=== PATIENT | male | born 1950 | race Caucasian/White ===

== ENCOUNTER 2016-07-13 06:52 | Day surgery (SDC) | payer BC ==
[~2016-07-13] VITALS: Ht 162.6 cm; Wt 70.0 kg
[2016-07-13] VITALS (11 sets, daily range): BP systolic 120–142; BP diastolic 61–94
[~2016-07-13 06:52] MED LIST: ASPI-586 PO; ATOR80TA PO; LACTATED RINGERS 1,000 ML IV SCH; LOVA10TA; NITR0.4T7 SL; SODIUM CHLORIDE FLUSH 3 ML SYR IV PRN; TAMS-8; [UNRECOGNIZED DRUG - OTHER]
--- OUTSIDE RECORDS SUMMARY | 2016-07-13 06:57 | XMS REPORT | Summary of Care ---
Author Author Abigail Crook Organization Unknown Address [address], [place] [id number] Phone Unavailable Care Team Providers Care Warp Picker Name Role Phone Alex Salas, Jeaneth Unavailable Unavailable Abigail Crook Unavailable Unavailable Nba Salas, T. KBeto Unavailable Unavailable Minal Pal Unavailable Unavailable Tram Salas, Mitzi Unavailable Unavailable Nohemi Salas, Shania Unavailable Unavailable Blanche Shah Unavailable Unavailable Unavailable Unavailable Functional Status Name Dates Details Functional status health issues are not documented Status: Name Dates Details Cognitive status health issues are not documented Status: Problems Name Dates Details Depression (311, F32.9) Status: Active Pulsatile abdominal mass (789.30, R19.00) Status: Active CAD (coronary atherosclerotic disease) (414.00, I25.10) Status: Active History of coronary artery stent placement (V45.82, Z95.5) Status: Active Hyperlipidemia (272.4, E78.5) Status: Active Obstructive sleep apnea (327.23, G47.33) Status: Active Medications Name Dates Details Sertraline HCl - 100 MG Oral Tablet TAKE 1 TABLET ONCE DAILY. Refills: 0 Diana Arango M.D. Start 29-Jun-2010 Active Tamsulosin HCl - 0.4 MG Oral Capsule Take 1 capsule twice daily Refills: 0 Abigail Crook Start 29-Jun-2010 Active Nitrostat 0.4 MG Sublingual Tablet Sublingual Take as directed Quantity: 25 Refills: 0 Edenilson Johnson M.D. Start Active Multivitamins TABS TAKE 1 TABLET DAILY. Refills: 0 Edenilson Johnson M.D. Start Active Iron 325 (65 Fe) MG Oral Tablet TAKE 1 TABLET DAILY DIRECTED. Quantity: 30 Refills: 0 Edenilson Johnson M.D. Start Active Aspirin 81 MG TABS TAKE 1 TABLET DAILY. Refills: 0 Diana Arango M.D. Start Active Atorvastatin Calcium 80 MG Oral Tablet TAKE 1 TABLET EVERY NIGHT AT BEDTIME Quantity: 90 Refills: 2 Mitchell Ugalde M.D. Start Active Supplies Auto CPAP 8-12 cm H2O pressure Refills: 0 La P.A., Abigail Start 16-May-2012 Active Supplies CPAP repair, services and supplies, G47.33 Mask, headgear, filters, heated tubing, chinstrap Quantity: 1 Refills: 0 La P[facility]., Abigail Start 28-May-2013 Active Supplies CPAP repair, services and supplies, 327.23 Mask, headgear, filters, heated tubing, chinstrap Quantity: 1 Refills: 0 Bharat P.A., Minal Start 27-May-2014 Active Nasacort Allergy 24HR 55 MCG/ACT Nasal Aerosol Refills: 0 Nohemi Salas, Davis Jauregui Start 27-May-2015 Active Benadryl Allergy 25 MG Oral Tablet Refills: 0 Nohemi Salas, Davis Jauregui Start 27-May-2015 Active Allergies and Adverse Reactions Name Dates Details Influenza Virus Vaccine Whole (Allergy) Status: Denied No Known Drug Allergies (Allergy) Status: Active Past Medical History Name Dates Details History of angina pectoris (V12.59, Z86.79) Status: Resolved History of Asthma (493.90, J45.909) Status: Resolved History of chest pain (V13.89, Z87.898) Status: Resolved History of Pneumonia (V12.61) Status: Resolved History of Pre-operative cardiovascular examination (V72.81, Z01.810) Status: Resolved Personal history of asthma (V12.69, Z87.09) Status: Resolved Procedures Procedure Dates Details History of Cath Stent Placement Completed: Procedures not documented Immunization Name Dates Details Immunizations not documented Family History Name Dates Details Family history of Acute Myocardial Infarction (V17.3) Status: Active Family history of Father At Age ____ Status: Active Social History Name Dates Details - Status: Name Dates Details Former smoker Vital Signs Date Test Result Details 08-Jun-2016 08:06 BP Systolic 108 mm[Hg] Status: Comments: Location: ; Position: BP Diastolic 62 mm[Hg] Status: Comments: Location: ; Position: Heart Rate 69 /min Status: Comments: Location: ; Height 64 in Status: Weight 164 lb Status: Physical Findings 98 Status: Comments: O2 Saturation Body Mass Index Calculated 28.15 kg/m2 Status: Body Surface Area Calculated 1.8 m2 Status: Results Date Description Value Details Results not documented Plan of Care Name Dates Details Planned Observations Planned Goals not documented Planned Encounters Appointment; Provider: Asiya Reyes A.P.R.N. On 11-Jun-2017 09:30 Appointment; Provider: Mitchell Ugalde M.D. On 19-Jul-2016 13:30 Interventions Provided Medication ChangesSupplies - Renew Instructions Name Dates Details Instructions not documented Encounters Appointment; Mitchell Ugalde M.D. Encounter Diagnosis: Problem not documented On 20-Jul-2015 15:15 Appointment; Davis Song M.D. Encounter Diagnosis: Problem not documented On 27-May-2015 15:15 Appointment; Mitchell Ugalde M.D. Encounter Diagnosis: Problem not documented On 15-Jul-2014 15:45
[2016-07-13] MEDS ORDERED: PROPOFOL 20 ML IV ONE ×2 (07:40)
[2016-07-13] MEDS ORDERED: MIDAZOLAM 2 MG/2 ML (VERSED) VIAL ONE (07:40)
[2016-07-13] MEDS ORDERED: ALFENTANIL 500 MCG/ML (ALFENTA) 5 ML AMP IV ONE (07:40)
--- NOTE | 2016-07-13 07:52 | NUR ---
0752 attempt to put in iv . pt has possible vagal episode. b/p 80/45 p 38 02 on and cool clothe to forehead. 0800 b/p 93/57 p49 sat [address] Arredondo in to see pt. 0805 b/p 112/69 p 52 sats 100.
--- NOTE | 2016-07-13 09:20 | NUR ---
[facility]OW[facility] CALLED PER PATIENT REQUEST. WILL BE HERE TO PICK PATIENT UP AROUND 1200 REQUESTED.
--- NOTE | 2016-07-13 10:57 | OPERATIVE REPORT ---
DATE OF OPERATION: 07/13/2016 PRE-OPERATIVE DIAGNOSIS: Colon screening POST-OPERATIVE DIAGNOSIS: Rectosigmoid polyp OPERATIVE PROCEDURE: Total colonoscopy with snare polypectomy SURGEON: Cory Arredondo MD ANESTHESIA: IV conscious sedation, Monitored Anesthesia Services POSITION: Left lateral decubitus ESTIMATED BLOOD LOSS: Minimal FINDINGS: 1. A 3 to 4 mm pedunculated polyp at the rectosigmoid junction. 2. The remainder of the colon mucosa appeared normal. 3. Good prep. DESCRIPTION OF PROCEDURE: Following satisfactory induction of analgesia a digital rectal exam was performed. This revealed no mass. The prostate was smooth and slightly enlarged. Sphincter tone was normal. The colonoscope was introduced per rectum and advanced under CO2 insufflation and direct vision to the cecum. The cecum was identified by the appendiceal orifice, convergence of teniae, ileocecal valve and palpation of the right lower quadrant. Health Facilities Surveyor photographs were obtained. The above areas were again carefully inspected again as the scope was slowly withdrawn. The polyp at the rectosigmoid junction was removed using snare cautery and submitted to pathology. Good hemostasis was noted at the polypectomy site. Retroflexed view of the rectum was normal. Excess insufflated CO2 was evacuated and the scope removed. The patient tolerated the procedure well and transferred to recovery in stable condition. Recommendations: Pending pathology results, if this is an adenomatous polyp the patient will require repeat colonoscopy in 5 years.
== END 2016-07-13 11:57 | disposition home or self-care (01) ==
LOC: ASC 06:52
PROVIDERS: ATTEND Surgery
DX: Z12.11 Encounter for screening for malignant neoplasm of colon (principal); D12.7 Benign neoplasm of rectosigmoid junction; I25.10 Atherosclerotic heart disease of native coronary artery without angina pectoris; Z95.5 Presence of coronary angioplasty implant and graft; G47.30 Sleep apnea, unspecified
CPT/HCPCS: 45385; 93005; J2250; J7120; 88305